=== PATIENT | female | born 1990 | race Caucasian/White ===

== ENCOUNTER → 2016-11-05 | Outpatient (CLI) | payer SELFPAY ==
[~2016-11-05] VITALS: Ht 172.7 cm; Wt 117.0 kg
[~2016-11-05] MED LIST: BACTRIM,SEPT1 TABLET PO; CIPRO500 MG PO; CIPROFLOXACIN H10 ML RIGHT EYE; CLARITIN10 M3 PO; CRANBERRY CONC1 EAC1 PO; FLEXERIL10 MG PO; GABAPENTIN300 MG PO; KEFLEX500 MG PO; MOBIC15 MG PO; OMEPRAZOLE20 MG PO; OMNICEF300 MG PO; PERCOCET 5/31 TABLET PO; PYRIDIUM100 MG PO; PYRIDIUM200 MG PO; ULTRAM50 MG PO; ZANAFLEX4 M1 PO; ZANTAC150 MG PO; ZOFRAN ODT4 MG PO; ZOFRAN4 MG PO
[2016-11-05 08:08] VITALS: BP 117/67
== END | disposition home or self-care (01) ==
LOC: IVINF 07:55
DX: Z31.82 Encounter for Rh incompatibility status (principal)
CPT/HCPCS: 96372; J2790

== ENCOUNTER 2016-12-23 02:52 | Outpatient (CLI) | payer OTHER ==
[2016-12-23 03:19] VITALS: BP 137/85
[2016-12-23] MEDS ORDERED: NEURONTIN300 MG PO (03:44)
[2016-12-23 03:55] VITALS: BP 133/74
== END 2016-12-23 06:15 | disposition home or self-care (01) ==
LOC: LDRP-OP 02:52 → 2WEST 02:53
DX: O76 Abnormality in fetal heart rate and rhythm complicating labor and delivery (principal); Z3A.39 39 weeks gestation of pregnancy
CPT/HCPCS: 59025; 76818; G0378

== ENCOUNTER 2016-12-25 01:28 | Outpatient (CLI) | payer OTHER ==
[~2016-12-25] VITALS: Ht 172.7 cm; Wt 117.9 kg
[~2016-12-25 01:28] MED LIST changes: +NEURONTIN300 MG PO
[2016-12-25 01:56] VITALS: BP 129/97
[2016-12-25 02:00] VITALS: BP 119/78
[2016-12-25 03:03] VITALS: BP 122/79
[2016-12-25 03:32] VITALS: BP 113/65
== END 2016-12-25 04:20 | disposition home or self-care (01) ==
LOC: LDRP-OP 01:28 → 2WEST 01:29 → LDRP-OP 01-28 06:32
DX: O47.1 False labor at or after 37 completed weeks of gestation (principal); Z3A.40 40 weeks gestation of pregnancy; Z03.73 Encounter for suspected fetal anomaly ruled out
CPT/HCPCS: 59025; 76805; G0378; J0595

== ENCOUNTER 2016-12-27 09:43 | Inpatient (IN) | payer OTHER ==
[2016-12-25 04:03] VITALS: BP 137/90
[2016-12-27] VITALS (20 sets, daily range): BP systolic 118–155; BP diastolic 63–97
[~2016-12-27] VITALS: Ht 172.7 cm; Wt 118.8 kg
[2016-12-27 10:39] LABS: EOSINOPHIL (%) 0.7 % (0-5); EOSINOPHIL COUNT 0.1 K/uL (0-0.3); HEMATOCRIT 34.4 % (36.0-46.0); IMMATURE GRANULOCYTE (%) 0.4 % (0.0-0.7); IMMATURE GRANULOCYTE COUNT 0.1 K/uL; INSTRUMENT ABS NEUTROPHIL CT 9.2 K/uL; LYMPHOCYTE COUNT 1.5 K/uL (1.0-2.8); MCH 24.9 PG (29.0-34.0); MCHC 32.3 G/DL (30.0-36.0); MCV 77.3 FL (83-99); MEAN PLAT.VOLUME 12.4 uM^3 (9.5-12.4); MONOCYTE (%) 5.9 % (3-12); MONOCYTE COUNT 0.7 K/uL (0-0.8); NEUTROPHIL COUNT 9.2 K/uL (1.8-6.4); PLATELET COUNT 189 K/uL (156-360); RBC DIS.WIDTH-CV 14.3 % (11.8-14.6); RBC DIS.WIDTH-SD 39.4 % (39-53); RED BLOOD COUNT 4.45 M/uL (3.80-5.20); WHITE BLOOD COUNT 11.5 K/uL (4.1-10.2)
[2016-12-28 06:50] LABS: BASOPHIL COUNT 0.1 K/uL (0-0.1); EOSINOPHIL (%) 0.5 % (0-5); EOSINOPHIL COUNT 0.1 K/uL (0-0.3); HEMATOCRIT 27.3 % (36.0-46.0); IMMATURE GRANULOCYTE (%) 0.6 % (0.0-0.7); IMMATURE GRANULOCYTE COUNT 0.1 K/uL; INSTRUMENT ABS NEUTROPHIL CT 9.5 K/uL; LYMPHOCYTE COUNT 2.1 K/uL (1.0-2.8); MCH 24.8 PG (29.0-34.0); MCHC 31.5 G/DL (30.0-36.0); MCV 78.7 FL (83-99); MEAN PLAT.VOLUME 12.6 uM^3 (9.5-12.4); MONOCYTE (%) 5.4 % (3-12); MONOCYTE COUNT 0.7 K/uL (0-0.8); NEUTROPHIL (%) 76.1 % (45-76); NEUTROPHIL COUNT 9.5 K/uL (1.8-6.4); PLATELET COUNT 159 K/uL (156-360); RBC DIS.WIDTH-CV 14.3 % (11.8-14.6); RBC DIS.WIDTH-SD 40.2 % (39-53); WHITE BLOOD COUNT 12.5 K/uL (4.1-10.2)
[2016-12-28 06:52] LABS: RED BLOOD COUNT 3.47 M/uL (3.80-5.20)
[2016-12-28 07:11] VITALS: BP 120/70
[2016-12-28 08:13] LABS: ALKALINE PHOSPHATASE 175 IU/L (3-129); ANION GAP 6 MEQ/L (2-14); CHLORIDE 106 MEQ/L (99-109); GFR ESTIMATE (CALCULATED) > 59 mL/min/; GLUCOSE 77 mg/dL (70-99); POTASSIUM 4.2 MEQ/L (3.7-5.4); SAMPLE HEMOLYSIS CHECK 0; SAMPLE ICTERIC CHECK 0; SAMPLE LIPEMIA CHECK 0; SODIUM 137 MEQ/L (136-147); TOTAL BILIRUBIN 0.3 MG/DL (0.0-1.0); UREA NITROGEN (BUN) 7 mg/dL (9-23)
[2016-12-28 13:14] VITALS: BP 135/78
[2016-12-28 13:57] LABS: UR CREATININE CONCENTRATION 72.3 MG/DL
[2016-12-28 23:50] VITALS: BP 133/87
[2016-12-29 07:55] VITALS: BP 116/74
[2016-12-29] MEDS ORDERED: DOCUSATE SODIU100 MG PO (10:05)
[2016-12-29] MEDS ORDERED: FERROCITE324 MG PO (10:06)
[2016-12-29] MEDS ORDERED: IBUPROFEN800 MG PO (10:06)
[2016-12-29] MEDS ORDERED: CAMILA0.35 MG PO (10:06)
== END 2016-12-29 13:40 | disposition home or self-care (01) | DRG 775 ==
LOC: LDRP-OP 09:43 → 2WEST 09:44 → LDRP-OP 01-28 04:29
PROVIDERS: Advanced Practice Midwife
PROC: 10E0XZZ Delivery of Products of Conception, External Approach (ICD-10-PCS; principal; 2016-12-27)
PROC: 3E0S3BZ Introduction of Anesthetic Agent into Epidural Space, Percutaneous Approach (ICD-10-PCS; 2016-12-27)
DX: O99.824 Streptococcus B carrier state complicating childbirth (principal); O41.1230 Chorioamnionitis, third trimester, not applicable or unspecified; D62 Acute posthemorrhagic anemia; O71.4 Obstetric high vaginal laceration alone; Z37.0 Single live birth; Z3A.40 40 weeks gestation of pregnancy; O48.0 Post-term pregnancy; Z68.39 Body mass index [BMI] 39.0-39.9, adult; O99.214 Obesity complicating childbirth; E66.01 Morbid (severe) obesity due to excess calories; O99.02 Anemia complicating childbirth; O14.04 Mild to moderate pre-eclampsia, complicating childbirth; O77.0 Labor and delivery complicated by meconium in amniotic fluid; O76 Abnormality in fetal heart rate and rhythm complicating labor and delivery
CPT/HCPCS: 80053; 82570; 84156; 85025; 88307; C1755; J2540; J3010; J7120

== ENCOUNTER 2017-02-11 17:09 | Emergency (ER) | payer OTHER ==
[~2017-02-11] VITALS: Ht 172.7 cm; Wt 119.0 kg
[~2017-02-11 17:09] MED LIST changes: +CAMILA0.35 MG PO; +DOCUSATE SODIU100 MG PO; +FERROCITE324 MG PO; +IBUPROFEN800 MG PO
[2017-02-11] MEDS ORDERED: TYLENOL WITH C1 EACH PO (17:23)
[2017-02-11] MEDS ORDERED: PEN-VEE K,VEET500 MG PO (17:23)
[2017-02-11 18:13] VITALS: BP 155/75
== END 2017-02-11 18:14 | disposition home or self-care (01) ==
LOC: EME 17:09
DX: K04.7 Periapical abscess without sinus (principal)
CPT/HCPCS: 99281; 99283

== ENCOUNTER 2017-02-18 22:34 | Emergency (ER) | payer OTHER ==
[~2017-02-18] VITALS: Ht 172.7 cm; Wt 118.6 kg
[~2017-02-18 22:34] MED LIST changes: +PEN-VEE K,VEET500 MG PO; +TYLENOL WITH C1 EACH PO
[2017-02-19 01:38] LABS: MCH 22.3 PG (29.0-34.0); MCHC 30.3 G/DL (30.0-36.0); MCV 73.6 FL (83-99); MEAN PLAT.VOLUME 10.5 uM^3 (9.5-12.4); PLATELET COUNT 262 K/uL (156-360); RBC DIS.WIDTH-CV 15.9 % (11.8-14.6); RBC DIS.WIDTH-SD 42.4 % (39-53); RED BLOOD COUNT 4.35 M/uL (3.80-5.20); WHITE BLOOD COUNT 10.1 K/uL (4.1-10.2)
[2017-02-19 01:41] LABS: LIPASE 20 U/L (1.0-51.0)
[2017-02-19 02:30] LABS: CHLORIDE 103 mEq/L (99-109); POTASSIUM 4.6 mEq/L (3.7-5.4); SODIUM 139 mEq/L (136-147)
[2017-02-19 02:32] LABS: GLUCOSE 95 mg/dL (70-99)
[2017-02-19 02:33] LABS: ANION GAP 9 MEQ/L (2-14)
[2017-02-19 02:34] LABS: TOTAL BILIRUBIN 0.3 mg/dL (0.0-1.0)
[2017-02-19 02:35] LABS: ALKALINE PHOSPHATASE 88 IU/L (3-129)
[2017-02-19 02:36] LABS: GFR ESTIMATE (CALCULATED) > 59 mL/min/
[2017-02-19 02:37] LABS: UREA NITROGEN (BUN) 13 mg/dL (9-23)
[2017-02-19] MEDS ORDERED: PEPCID20 MG PO (02:53)
[2017-02-19 03:11] VITALS: BP 128/89
== END 2017-02-19 03:11 | disposition home or self-care (01) ==
LOC: EME 22:34
PROVIDERS: Emergency Medicine
DX: K20.9 Esophagitis, unspecified (principal); R07.89 Other chest pain
CPT/HCPCS: 71020; 71275; 80053; 83690; 85027; 85379; 93005; 99281; 99285; J7030

== ENCOUNTER 2017-03-06 18:42 | Emergency (ER) | payer OTHER ==
[~2017-03-06] VITALS: Ht 172.7 cm; Wt 118.0 kg
[~2017-03-06 18:42] MED LIST changes: +PEPCID20 MG PO
[2017-03-06 19:19] LABS: CHLORIDE 106 mEq/L (99-109); HEMATOCRIT 35.4 % (36.0-46.0); MCH 22.7 PG (29.0-34.0); MCHC 31.4 G/DL (30.0-36.0); MCV 72.4 FL (83-99); MEAN PLAT.VOLUME 10.1 uM^3 (9.5-12.4); PLATELET COUNT 315 K/uL (156-360); POTASSIUM 4.1 mEq/L (3.7-5.4); RBC DIS.WIDTH-CV 16.3 % (11.8-14.6); RBC DIS.WIDTH-SD 42.3 % (39-53); RED BLOOD COUNT 4.89 M/uL (3.80-5.20); SODIUM 141 mEq/L (136-147); WHITE BLOOD COUNT 13.7 K/uL (4.1-10.2)
[2017-03-06 19:21] LABS: GLUCOSE 89 mg/dL (70-99)
[2017-03-06 19:22] LABS: ANION GAP 8 MEQ/L (2-14)
[2017-03-06 19:25] LABS: GFR ESTIMATE (CALCULATED) > 59 mL/min/; UREA NITROGEN (BUN) 11 mg/dL (9-23)
[2017-03-06 19:34] LABS: QUANTITATIVE HCG < 4.0 MIU/ML; TROP-I INTERPRETATION NEGATIVE; TROPONIN-I < 0.01 ng/mL (0.0-0.30)
[2017-03-06] MEDS ORDERED: FLEXERIL10 MG PO (20:33)
[2017-03-06 20:44] VITALS: BP 128/85
== END 2017-03-06 20:44 | disposition home or self-care (01) ==
LOC: EME 18:42
PROVIDERS: Nurse Practitioner Family
DX: S29.011A Strain of muscle and tendon of front wall of thorax, initial encounter (principal); X58.XXXA Exposure to other specified factors, initial encounter; M79.602 Pain in left arm; R42 Dizziness and giddiness; H53.8 Other visual disturbances; R11.0 Nausea; Z98.890 Other specified postprocedural states; R79.1 Abnormal coagulation profile
CPT/HCPCS: 71275; 80048; 84484; 84702; 85027; 85379; 93005; 99281; 99284; J1885; J7030

== ENCOUNTER 2017-05-18 11:38 | Emergency (ER) | payer OTHER ==
[~2017-05-18] VITALS: Ht 172.7 cm; Wt 119.3 kg
[2017-05-18] MEDS ORDERED: PREDNISONE5 M1 PO (13:38)
[2017-05-18] MEDS ORDERED: FLEXERIL5 MG PO (13:38)
[2017-05-18 13:52] VITALS: BP 148/60
== END 2017-05-18 13:53 | disposition home or self-care (01) ==
LOC: EME 11:38
DX: M54.42 Lumbago with sciatica, left side (principal)
CPT/HCPCS: 99281; 99283

== ENCOUNTER 2017-05-24 04:08 | Emergency (ER) | payer OTHER ==
[~2017-05-24] VITALS: Ht 172.7 cm; Wt 116.9 kg
[~2017-05-24 04:08] MED LIST changes: +FLEXERIL5 MG PO; +PREDNISONE5 M1 PO
[2017-05-24] MEDS ORDERED: MOTRIN600 MG PO (04:56)
[2017-05-24] MEDS ORDERED: NORCO 5/3251 TABLET PO (04:56)
[2017-05-24 05:13] VITALS: BP 119/85
== END 2017-05-24 05:18 | disposition home or self-care (01) ==
LOC: EME 04:08
DX: S20.229A Contusion of unspecified back wall of thorax, initial encounter (principal); W11.XXXA Fall on and from ladder, initial encounter; Y92.009 Unspecified place in unspecified non-institutional (private) residence as the place of occurrence of the external cause
CPT/HCPCS: 72070; 99281; 99284

== ENCOUNTER 2017-06-29 17:50 | Emergency (ER) | payer OTHER ==
[~2017-06-29] VITALS: Ht 172.7 cm; Wt 121.4 kg
[~2017-06-29 17:50] MED LIST changes: +MOTRIN600 MG PO; +NORCO 5/3251 TABLET PO
[2017-06-29 19:03] LABS: BILIRUBIN NEGATIVE; BLOOD NEGATIVE; COLOR YELLOW ((YELLOW)); GLUCOSE (STRIP) NEGATIVE; KETONES NEGATIVE; LEUKOCYTES NEGATIVE; NITRITE NEGATIVE; PROTEIN (STRIP) NEGATIVE; SPECIFIC GRAVITY 1.018 (1.000-1.030); UROBILINOGEN 0.2 MG/DL (0.2-1.0)
[2017-06-29 19:06] LABS: APPEARANCE CLOUDY ((CLEAR))
[2017-06-29 19:07] LABS: HEMATOCRIT 37.1 % (36.0-46.0); HEMOGLOBIN 11.6 G/DL (11.9-15.5); MCH 23.3 PG (29.0-34.0); MCHC 31.3 G/DL (30.0-36.0); MCV 74.6 FL (83-99); PLATELET COUNT 302 K/uL (156-360); RBC DIS.WIDTH-CV 17.9 % (11.8-14.6); RBC DIS.WIDTH-SD 47.4 % (39-53); RED BLOOD COUNT 4.97 M/uL (3.80-5.20); WHITE BLOOD COUNT 9.5 K/uL (4.1-10.2)
[2017-06-29 19:15] LABS: ALBUMIN 3.7 g/dL (3.2-4.8)
[2017-06-29 19:16] LABS: CHLORIDE 106 mEq/L (99-109); POTASSIUM 4.2 mEq/L (3.7-5.4); SODIUM 141 mEq/L (136-147)
[2017-06-29 19:18] LABS: GLUCOSE 98 mg/dL (70-99); TOTAL PROTEIN 7.2 g/dL (6.4-8.3)
[2017-06-29 19:20] LABS: TOTAL BILIRUBIN 0.2 mg/dL (0.0-1.0)
[2017-06-29 19:21] LABS: ALKALINE PHOSPHATASE 94 IU/L (3-129)
[2017-06-29 19:22] LABS: CREATININE 0.8 mg/dL (0.6-1.3); GFR ESTIMATE (CALCULATED) > 59 mL/min/
[2017-06-29 19:22] LABS: EPITHELIAL CELLS 4+ /HPF; MUCUS NONE SEEN /LPF
[2017-06-29 19:23] LABS: AST (GOT) 14 IU/L (2-34); UREA NITROGEN (BUN) 8 mg/dL (9-23)
[2017-06-29 19:23] LABS: BACTERIA 1+ /HPF; RED BLOOD CELLS NONE SEEN /HPF (0-5); UCUL ADDED? NO; WHITE BLOOD CELLS NONE SEEN /HPF (0-5)
[2017-06-29 19:25] LABS: ALT (GPT) 24 IU/L (3-49)
[2017-06-29 19:31] LABS: QUANTITATIVE HCG < 4.0 MIU/ML
[2017-06-29 20:12] LABS: LIPASE 44 U/L (1.0-51.0)
[2017-06-29 22:05] VITALS: BP 134/72
== END 2017-06-29 22:06 | disposition home or self-care (01) ==
LOC: EME 17:50
DX: K59.00 Constipation, unspecified (principal); N83.202 Unspecified ovarian cyst, left side; R11.0 Nausea; R30.0 Dysuria
CPT/HCPCS: 74177; 80053; 81003; 83690; 84702; 85027; 99281; 99284; J1885; J2405; J7030

== ENCOUNTER 2017-07-14 17:44 | Emergency (ER) | payer OTHER ==
[~2017-07-14] VITALS: Ht 172.7 cm; Wt 121.4 kg
[2017-07-14 18:39] LABS: HEMATOCRIT 36.8 % (36.0-46.0); HEMOGLOBIN 11.7 G/DL (11.9-15.5); MCH 23.7 PG (29.0-34.0); MCHC 31.8 G/DL (30.0-36.0); MCV 74.6 FL (83-99); PLATELET COUNT 254 K/uL (156-360); RBC DIS.WIDTH-CV 17.8 % (11.8-14.6); RED BLOOD COUNT 4.93 M/uL (3.80-5.20); WHITE BLOOD COUNT 12.5 K/uL (4.1-10.2)
[2017-07-14 18:41] LABS: ALBUMIN 4.3 g/dL (3.2-4.8); CHLORIDE 109 mEq/L (99-109); POTASSIUM 4.6 mEq/L (3.7-5.4); SODIUM 140 mEq/L (136-147)
[2017-07-14 18:43] LABS: GLUCOSE 109 mg/dL (70-99)
[2017-07-14 18:45] LABS: TOTAL BILIRUBIN 0.2 mg/dL (0.0-1.0)
[2017-07-14 18:47] LABS: ALKALINE PHOSPHATASE 88 IU/L (3-129); CREATININE 0.8 mg/dL (0.6-1.3); GFR ESTIMATE (CALCULATED) > 59 mL/min/
[2017-07-14 18:48] LABS: UREA NITROGEN (BUN) 14 mg/dL (9-23)
[2017-07-14 18:49] LABS: AST (GOT) 15 IU/L (2-34)
[2017-07-14 18:50] LABS: ALT (GPT) 24 IU/L (3-49); LIPASE 66 U/L (1.0-51.0)
[2017-07-14 18:59] LABS: QUANTITATIVE HCG < 4.0 MIU/ML
[2017-07-14 21:20] LABS: APPEARANCE SL.HAZY ((CLEAR)); BILIRUBIN NEGATIVE; BLOOD NEGATIVE; COLOR YELLOW ((YELLOW)); GLUCOSE (STRIP) NEGATIVE; KETONES NEGATIVE; LEUKOCYTES NEGATIVE; NITRITE NEGATIVE; PROTEIN (STRIP) NEGATIVE; SPECIFIC GRAVITY 1.023 (1.000-1.030); UROBILINOGEN 0.2 MG/DL (0.2-1.0)
[2017-07-14] MEDS ORDERED: NEURONTIN300 MG PO (21:22)
[2017-07-14] MEDS ORDERED: ZANAFLEX4 MG PO (21:22)
[2017-07-14 21:26] LABS: BACTERIA NONE SEEN /HPF; EPITHELIAL CELLS RARE /HPF; MUCUS 1+ /LPF; RED BLOOD CELLS 0-5 /HPF (0-5); UCUL ADDED? YES
[2017-07-15] MEDS ORDERED: PERCOCET 5/31 TABLET PO (01:18)
[2017-07-15] MEDS ORDERED: ZOFRAN ODT4 MG PO (01:18)
[2017-07-15 01:33] VITALS: BP 120/100
== END 2017-07-15 02:13 | disposition home or self-care (01) ==
LOC: EME 17:44
DX: R10.12 Left upper quadrant pain (principal); R10.32 Left lower quadrant pain; R11.2 Nausea with vomiting, unspecified; M54.30 Sciatica, unspecified side; Z88.6 Allergy status to analgesic agent; Z88.8 Allergy status to other drugs, medicaments and biological substances
CPT/HCPCS: 74177; 80053; 81003; 83690; 84702; 85027; 87086; 99281; 99285; J2270; J2405; J7030